=== PATIENT | female | born 1945 | race Caucasian/White ===

== ENCOUNTER 2016-09-19 10:30 | Outpatient (CLI) | payer MEDICARE ==
[2016-09-19 10:58] LABS: #Basophils 0.1 thou/uL (0.0-0.2); #Eosinphils 0.1 thou/uL (0.0-0.7); #Lymphocytes 3.2 thou/uL (1.20-3.40); #Monocytes 0.6 thou/uL (0.11-0.59); #Neutrophils 5.4 thou/uL (1.40-6.50); %Basophils 0.6 % (0.0-1.0); %Eosinophils 0.9 % (0.0-10.0); %Monocytes 6.2 % (0.0-10.0); Hematocrit 42.5 % (36.0-47.0); Mean Platelet Volume 5.1 fL (7.4-10.4); Red Blood Cell (RBC) Count 4.71 mill/uL (4.20-5.40); White Blood Cell (WBC) Count 9.3 thou/uL (4.8-10.8)
[2016-09-19 12:16] LABS: ALT (SGPT) 13 U/L (0-55); AST (SGOT) 17 U/L (5-34); Alkaline Phosphatase 65 U/L (40-150); Anion Gap 16 mmol/L (10-20); BUN (Urea Nitrogen) 15 mg/dL (9.8-20.1); Bilirubin, Total 0.9 mg/dL (0.2-1.2); Calc. Creatinine Clearance 0 mL/min (70-130); Calcium 9.7 mg/dL (7.8-10.44); Carbon Dioxide 28 mmol/L (23-31); Chloride 103 mmol/L (98-107); Estimated GFR-MDRD 74; Globulin 3.1 g/dL (2.4-3.5); LDL Cholesterol, Calculated 138 mg/dL; Protein, Total 7.7 g/dL (5.8-8.1)
== END 2016-09-19 10:31 | disposition home or self-care (01) ==
LOC: HPCALD 10:30
PROVIDERS: ATTEND Physician Assistant
DX: I10 Essential (primary) hypertension (principal)
CPT/HCPCS: 36415; 80053; 80061; 84443; 85025

== ENCOUNTER 2017-11-19 08:46 | Outpatient (CLI) | payer MEDICARE ==
--- NOTE | 2017-11-19 18:50 | RAD ---
CHEST TWO VIEWS: 11/19/17 No prior films were available for comparison. The heart is normal in size. The lungs are clear with n o acute infiltrate or effusion seen. The mediastinum was unremarkable in appearance. There are no acu te bony changes. IMPRESSION: No acute thoracic finding. POS: HOME
== END 2017-11-19 08:47 | disposition home or self-care (01) ==
LOC: BURRAD 08:46
PROVIDERS: ATTEND Family Medicine
DX: R05 Cough (principal)
CPT/HCPCS: 71046

== ENCOUNTER 2023-12-11 15:01 | Emergency (ER) | payer MEDICARE, OTHER ==
[2023-12-11] MEDS ORDERED: Lidocaine 1% PF 5 ML VIAL ONE (15:11)
== END 2023-12-11 15:32 | disposition home or self-care (01) ==
LOC: BURERS 15:01
DX: L02.414 Cutaneous abscess of left upper limb (principal); I10 Essential (primary) hypertension
CPT/HCPCS: 23930; 87070; 87076; 87205; 99283